=== PATIENT | male | born 1970 | race Caucasian/White ===

== ENCOUNTER 2019-08-05 14:50 | Outpatient (RCR) | payer MEDICARE, SELFPAY | END 2019-08-05 15:30 | disposition home or self-care (01) | LOC: PT 14:50 | PROVIDERS: Visit Provider Orthopaedic Surgery | DX: M25.561 Pain in right knee (principal) | CPT/HCPCS: 97014; 97016; 97033; 97110; 97163; G0283 ==

== ENCOUNTER 2021-05-31 13:54 | Outpatient (RCR) | payer MEDICARE, SELFPAY | END 2021-05-31 13:55 | disposition home or self-care (01) | LOC: OT 13:54 | PROVIDERS: Visit Provider Family Medicine | DX: M25.511 Pain in right shoulder (principal) | CPT/HCPCS: 97165 ==

== ENCOUNTER 2021-08-19 17:18 | Emergency (ER) | payer MEDICARE, SELFPAY ==
[2021-08-19 18:03] VITALS: BP 136/69; PULSE 75; RESP 16; TEMP 36.6; O2SAT 99; BMI 26.3
--- NOTE | 2021-08-19 18:44 | HMH.EDUTC ---
[facility] [place] Clinical Impression: Allergic reaction Qualifiers: Encounter type: initial encounter Qualified Code(s): T78.40XA - Allergy, unspecified, initial encounter Disposition: Home, Self-Care Condition on Discharge: Good Instructions: DI for General Allergic Reactions Additional Instructions: Try to identify and avoid contact with the offending substance. Don't start the oral steroids until tomorrow. Don't put the topical steroids (triamcinolone) on your face or your groin. Follow up with your regular doctor. Take the benedryl (diphenhydramine) regularly for the next few day. It will make you drowsy, so don't drive or operate heavy machinery after taking it. GO TO THE ER FOR ANY WORSENING SYMPTOMS OR CONCERNS Prescriptions: diphenhydrAMINE HCL [Diphenhydramine HCl] 25 mg PO Q6HP PRN #30 cap PRN Reason: Itching Transmission Status: Received by [id number] methylPREDNISolone [Medrol] 4 mg PO DIRECTED 6 Days #21 packet Transmission Status: Received by [id number] Triamcinolone Acetonide 1 applicatio TP TIDP PRN 7 Days #1 gm PRN Reason: Itching Transmission Status: Received by [id number] Referrals: Kulwinder Winter [Primary Care Provider] - Time of Disposition: 19:14 Medical Decision Making - Medical Records Medical records reviewed: No: I reviewed the patient's medical records. - Jay Inquiry Pt receiving controlled substance: No Vital Signs: 08/19/21 18:03 08/19/21 19:24 Temperature 98 F 98 F Temperature Source Oral Pulse Rate 75 Pulse Rate [Left] 75 Respiratory Rate 16 16 Blood Pressure 126/69 Blood Pressure [Right Arm] 136/69 Blood Pressure Mean [Right Arm] 91 02 Sat by Pulse Oximetry 99 - Lab Data Lab results reviewed: No: I reviewed the patient's lab results. Orders (Tests/Meds): ED MEDICATIONS Discontinued Medications Generic Name Dose Route Start Last Admin Trade Name Freq PRN Reason Stop Dose Admin Methylprednisolone Sodium Succinate 125 mg 08/19/21 19:06 08/19/21 19:07 Methylprednisolone Sod Succ 125mg Vial IM 08/19/21 19:07 125 mg ONCE ONE Administration [facility] [place] - General Stated complaint: allergic reaction, lips, arms/fingers, ankles Time Seen by Provider: 08/19/21 18:44 Mode of Arrival: Ambulatory Source of Information: Patient Limitations: No Limitations Description of Symptoms (Recalled from Triage Doc. by RN): pt states he is having an allergic reaction, unsure of the offending substance. pt presents with lip swelling and hives on his buttocks, ankles, hands, arms and hips. started this am. HEENT Symptoms (Recalled from RN notes): No Resp Symptoms (Recalled from RN notes): No Skin Symptoms (Recalled from RN notes): Yes MS Symptoms (Recalled from RN notes): No Functional Status (Recalled from RN notes): wnl - History of Present Illness Provider Complaint: He states that he has had generalized itching, hives on his back, neck and chest, and a rash on his face for the past 2 days. He denies having any idea what may have triggered his reaction. He has not started any new meds recently. - Related Data Previous Rx's Medication Instructions Recorded Triamcinolone Acetonide 1 applicatio TP TIDP PRN 7 Days #1 08/19/21 gm diphenhydrAMINE HCL 25 mg PO Q6HP PRN #30 cap 08/19/21 [Diphenhydramine HCl] methylPREDNISolone [Medrol] 4 mg PO DIRECTED 6 Days #21 08/19/21 packet Allergies Allergy/AdvReac Type Severity Reaction Status Date / Time amoxicillin [From Augmentin] Allergy Verified 08/19/21 18:07 clavulanic acid Allergy Verified 08/19/21 18:07 [From Augmentin] levofloxacin [From Levaquin] Allergy Verified 08/19/21 18:07 silver sulfadiazine Allergy Verified 08/19/21 18:07 [From Silvadene] - Worker's Comp Is this a Worker's Comp case?: No [facility] History - Hepatitis A Screen Drug use history?: No High risk sexual behaviors?: No History of sexually t
[2021-08-19 19:24] VITALS: BP 126/69; PULSE 75; RESP 16; TEMP 36.6
== END 2021-08-19 19:27 | disposition home or self-care (01) ==
PROVIDERS: Emergency Provider Nurse Practitioner Family; PCP Family Medicine
DX: T78.40XA Allergy, unspecified, initial encounter (principal); R21 Rash and other nonspecific skin eruption; Z79.52 Long term (current) use of systemic steroids; Z79.899 Other long term (current) drug therapy; Z88.4 Allergy status to anesthetic agent; Z88.1 Allergy status to other antibiotic agents; Z88.8 Allergy status to other drugs, medicaments and biological substances
CPT/HCPCS: 96372; 99213; G0463

== ENCOUNTER 2022-06-03 12:49 | Outpatient (RCR) | payer MEDICARE, SELFPAY | END 2022-06-03 12:50 | disposition home or self-care (01) | LOC: PT 12:49 | PROVIDERS: PCP Family Medicine; Visit Provider Orthopaedic Surgery | DX: M79.642 Pain in left hand (principal); M19.042 Primary osteoarthritis, left hand; M25.532 Pain in left wrist | CPT/HCPCS: 97163 ==